=== PATIENT | female | born 1985 | race Caucasian/White ===

== ENCOUNTER 2019-03-10 03:09 | Emergency (ER) | payer MEDICAID, OTHER ==
[~2019-03-10] VITALS: Ht 160 cm; Wt 70.4 kg
[~2019-03-10 03:09] MED LIST: ACET500C5 PO; CEPH-443 PO; PREN-93 PO
[2019-03-10 03:12] VITALS: Ht 160 cm; Wt 70.4 kg
[2019-03-10] MEDS: ACETAMINOPHEN 500 MG TAB PO STA ×2 (03:57→03:58)
[2019-03-10] MEDS ORDERED: SOD CHLORIDE 0.9% 1,000 ML IV ONE (04:00)
[2019-03-10 07:52] VITALS: BP 114/70; PULSE 81; RESP 17
== END 2019-03-10 07:53 | disposition home or self-care (01) ==
LOC: FTE 03:09
DX: O20.9 Hemorrhage in early pregnancy, unspecified (principal); O45.91 Premature separation of placenta, unspecified, first trimester; R10.2 Pelvic and perineal pain; Z3A.12 12 weeks gestation of pregnancy
CPT/HCPCS: 76801; 80053; 81001; 82150; 83690; 84702; 85025; 85610; 85730; 86850; 86900; 86901; 87086; 96360; J2790; J7030; Z7502; Z7610

== ENCOUNTER 2019-03-12 12:01 | Emergency (ER) | payer OTHER ==
[~2019-03-12] VITALS: Ht 160 cm; Wt 69.6 kg
[2019-03-12 12:04] VITALS: BP 108/60; PULSE 92; RESP 18; Ht 160 cm; Wt 69.6 kg
== END 2019-03-12 14:52 | disposition home or self-care (01) ==
LOC: FTE 12:01
DX: O20.9 Hemorrhage in early pregnancy, unspecified (principal); O23.41 Unspecified infection of urinary tract in pregnancy, first trimester; Z3A.12 12 weeks gestation of pregnancy
CPT/HCPCS: 36415; 76801; 81001; 84702; 85025; 87086; Z7502